=== PATIENT | female | born 1995 | race Hispanic/Latino ===

== ENCOUNTER 2021-02-06 09:31 | Inpatient (IN) | payer BC ==
[~2021-02-06] VITALS: Ht 165.1 cm; Wt 98.4 kg
[2021-02-06] MEDS ORDERED: LIDOCAINE HCL 2% VISCOUS 15 ML UDCUP ONE (10:06)
[2021-02-06] MEDS ORDERED: MAG HYDROX/AL HYDROX/SIMETH ES 30 ML SUSP UDCUP ONE (10:07)
[2021-02-06] MEDS ORDERED: FAMOTIDINE/PF 20 MG/2 ML VIAL IV ONE (10:08)
[2021-02-06 10:22] LABS: BASOPHILS % (AUTO) 0.4 % (0.0-5.0); EOSINOPHILS % (AUTO) 0.1 % (0.0-8.0); HEMATOCRIT 40.6 % (36-48); LYMPHOCYTES % (AUTO) 5.8 % (21.0-51.0); MEAN CORPUSCULAR HEMOGLOBIN 28.7 pg (27.0-33.0); MEAN CORPUSCULAR HGB CONC 32.8 g/dL (32.0-36.0); MEAN CORPUSCULAR VOLUME 87.5 fL (79-99); MONOCYTES % (AUTO) 8.5 % (3.0-13.0); NEUTROPHILS % (AUTO) 84.8 % (40.0-77.0); PLATELET COUNT (AUTO) 169 K/uL (130-400); RED BLOOD CELL COUNT(AUTO) 4.64 MIL/uL (4.00-5.50); RED CELL DISTRIBUTION WIDTH 14.6 % (11.0-15.5); WHITE BLOOD COUNT (AUTO) 7.7 K/uL (4.8-10.8)
[2021-02-06 10:32] LABS: CREATININE 0.8 mg/dL (0.5-1.5); POTASSIUM 3.9 mmol/L (3.5-5.1)
[2021-02-06 10:41] LABS: ALBUMIN 3.9 g/dL (3.5-5.0); BILIRUBIN,TOTAL 1.4 mg/dL (0.2-1.0); TOTAL PROTEIN, SERUM 8.4 g/dL (6.0-8.3)
[2021-02-06] MEDS ORDERED: HYDROMORPHONE HCL 0.5 MG/0.5 ML ML IVP PRN ×2 (16:15)
[2021-02-06] MEDS ORDERED: ONDANSETRON HCL 4 MG/2 ML VIAL IV PRN (16:15)
[2021-02-06 17:09] LABS: APPEARANCE,URINE Clear (CLEAR); BILIRUBIN,URINE Small (NEGATIVE); COLOR,URINE Dark Yellow (YELLOW); GLUCOSE, URINE (UA) Negative (NEGATIVE); KETONES,URINE Negative (NEGATIVE); LEUKOCYTE ESTERASE ,URINE Trace (NEGATIVE); NITRATE,URINE Negative (NEGATIVE); OCCULT BLOOD,URINE Negative (NEGATIVE); PH,URINE 7.5 (5.0-8.0); PROTEIN,URINE Negative (NEGATIVE)
[2021-02-06 17:10] LABS: ALANINE AMINOTRANSFERASE 566 U/L (12-78); ALBUMIN 4.1 g/dL (3.5-5.0); BILIRUBIN,DIRECT 0.7 mg/dL (0.0-0.3); BILIRUBIN,TOTAL 1.3 mg/dL (0.2-1.0); HCG,QUANTITATIVE 0 mIU/mL (0-5); THYROID STIMULATING HORMONE 88.01 uIU/mL (0.36-3.74); TOTAL PROTEIN, SERUM 8.5 g/dL (6.0-8.3)
[2021-02-06 17:15] LABS: ASPARTATE AMINOTRANSFERASE 896 U/L (10-37)
[2021-02-06 17:22] LABS: CRP QUANTITATIVE < 2.00 mg/L (0.00-9.0)
[2021-02-06 17:25] LABS: BACTERIA,URINE Few /HPF (None Seen); MUCUS,URINE Moderate LPF (None Seen); SQUAMOUS EPITHELIAL CELL,UR Few /HPF (0-2)
[2021-02-06] MEDS ORDERED: SUCRALFATE 1 GM TABLET ONE (21:50)
[2021-02-07] MEDS: SUCRALFATE 1 GM TABLET PO SCH ×2 (02:30→08:30)
[2021-02-07] MEDS ORDERED: SUCRALFATE 1 GM TABLET ONE ×3 (03:47→20:24)
[2021-02-07 05:42] LABS: EOSINOPHILS % (AUTO) 0.8 % (0.0-8.0); HEMATOCRIT 38.1 % (36-48); LYMPHOCYTES % (AUTO) 9.3 % (21.0-51.0); MEAN CORPUSCULAR HEMOGLOBIN 28.4 pg (27.0-33.0); MEAN CORPUSCULAR HGB CONC 32.3 g/dL (32.0-36.0); MONOCYTES % (AUTO) 12.4 % (3.0-13.0); NEUTROPHILS % (AUTO) 76.2 % (40.0-77.0); PLATELET COUNT (AUTO) 140 K/uL (130-400); RED BLOOD CELL COUNT(AUTO) 4.33 MIL/uL (4.00-5.50); RED CELL DISTRIBUTION WIDTH 14.6 % (11.0-15.5); WHITE BLOOD COUNT (AUTO) 5.9 K/uL (4.8-10.8)
[2021-02-07 06:07] LABS: ALBUMIN 3.5 g/dL (3.5-5.0); BILIRUBIN,TOTAL 4.7 mg/dL (0.2-1.0); CREATININE 0.7 mg/dL (0.5-1.5); TOTAL PROTEIN, SERUM 7.5 g/dL (6.0-8.3)
[2021-02-07] MEDS ORDERED: FAMOTIDINE/PF 20 MG/2 ML VIAL IV ONE ×2 (08:26→20:25)
[2021-02-07] MEDS ORDERED: LEVOTHYROXINE 150 MCG TABLET ONE (08:26)
[2021-02-07] MEDS ORDERED: PANTOPRAZOLE 40 MG/VIAL ONE ×2 (08:26→20:25)
[2021-02-07 22:20] VITALS: BP 115/72
[2021-02-07] MEDS ORDERED: LEVO75CA5 PO (23:10)
[2021-02-07] MEDS ORDERED: VITAD50000 PO (23:10)
[2021-02-07 23:37] VITALS: BP 120/74
[2021-02-07] MEDS ORDERED: FAMO20TA8 PO (23:51)
[2021-02-08] VITALS (30 sets, daily range): BP systolic 113–160; BP diastolic 62–95
[2021-02-08 04:18] LABS: BASOPHILS % (AUTO) 1.2 % (0.0-5.0); EOSINOPHILS % (AUTO) 1.8 % (0.0-8.0); HEMATOCRIT 36.8 % (36-48); LYMPHOCYTES % (AUTO) 17.3 % (21.0-51.0); MEAN CORPUSCULAR HEMOGLOBIN 28.5 pg (27.0-33.0); MEAN CORPUSCULAR HGB CONC 32.3 g/dL (32.0-36.0); MEAN CORPUSCULAR VOLUME 88.2 fL (79-99); MONOCYTES % (AUTO) 11.1 % (3.0-13.0); NEUTROPHILS % (AUTO) 68.3 % (40.0-77.0); PLATELET COUNT (AUTO) 129 K/uL (130-400); RED BLOOD CELL COUNT(AUTO) 4.17 MIL/uL (4.00-5.50); RED CELL DISTRIBUTION WIDTH 14.7 % (11.0-15.5); WHITE BLOOD COUNT (AUTO) 6.7 K/uL (4.8-10.8)
[2021-02-08 04:45] LABS: ALBUMIN 3.4 g/dL (3.5-5.0); BILIRUBIN,TOTAL 1.7 mg/dL (0.2-1.0); CREATININE 0.9 mg/dL (0.5-1.5); POTASSIUM 3.7 mmol/L (3.5-5.1); TOTAL PROTEIN, SERUM 7.2 g/dL (6.0-8.3)
[2021-02-08] MEDS: LEVOTHYROXINE 75 MCG TABLET PO SCH (06:30)
[2021-02-08] MEDS: SODIUM CHLORIDE 0.9% 1000ML 1,000 ML IV SCH (06:49)
[2021-02-08] MEDS: FAMOTIDINE/PF 20 MG/2 ML VIAL IV SCH ×2 (09:19→21:03)
[2021-02-08] MEDS ORDERED: IOHEXOL-350 50ML VIAL IV ONE (10:19)
[2021-02-08] MEDS ORDERED: INDOMETHACIN 50 MG SUPP.RECT RC SCH (12:15)
[2021-02-08] MEDS ORDERED: SUCCINYLCHOLINE 200MG/10ML SYR ONE (14:18)
[2021-02-08] MEDS ORDERED: PROPOFOL 10 MG/ML 20ML VIAL IV ONE ×2 (14:18→14:40)
[2021-02-08] MEDS ORDERED: FENTANYL CITRATE PF 50 MCG/1 ML 2ML VIAL ONE (14:18)
[2021-02-08] MEDS ORDERED: LIDOCAINE HCL 1% 20 ML VIAL ONE (14:18)
[2021-02-08] MEDS ORDERED: MIDAZOLAM HCL 1 MG/ML 2ML VIAL ONE (14:19)
[2021-02-08] MEDS: SUCRALFATE 1 GM TABLET PO SCH (21:02)
[2021-02-08] MEDS: PANTOPRAZOLE 40 MG/VIAL IVP SCH ×2 (21:02→21:30)
[2021-02-08 23:08] LABS: CARBON DIOXIDE 27 mmol/L (21-32); CHLORIDE 105 mmol/L (101-111); CREATININE 0.8 mg/dL (0.5-1.5); GLOMERULAR FILTR. RATE CALC 92 mL/min (>60); GLUCOSE,RANDOM 83 mg/dL (70-105); POTASSIUM 3.4 mmol/L (3.5-5.1); SODIUM SERUM 142 mmol/L (136-145); UREA NITROGEN, BLOOD 10 mg/dL (7-18)
[2021-02-08 23:18] LABS: ALANINE AMINOTRANSFERASE 354 U/L (12-78); ALBUMIN 3.4 g/dL (3.5-5.0); ASPARTATE AMINOTRANSFERASE 118 U/L (10-37); BILIRUBIN,TOTAL 1.2 mg/dL (0.2-1.0); CREATINE KINASE, TOTAL 96 U/L (21-232); MYOGLOBIN 35 ng/mL (10-92); TOTAL PROTEIN, SERUM 7.3 g/dL (6.0-8.3); TROPONIN I < 0.04 ng/mL (0.00-0.06)
[2021-02-08] MEDS ORDERED: POTASSIUM CHLORIDE 20MEQ/100ML 100 ML IV PRN (23:45)
[2021-02-09] MEDS: DEXTROSE 5 % AND 0.9 % NACL 1,000 ML IV SCH ×2 (00:57→12:11)
[2021-02-09] MEDS ORDERED: POTASSIUM CHLORIDE 20MEQ/100ML 100 ML IV ONE (01:32)
[2021-02-09] MEDS: LIDOCAINE HCL-MPF 1% 2ML VIAL IV PRN (02:01)
[2021-02-09 04:17] VITALS: BP 110/60
[2021-02-09 04:35] LABS: BASOPHILS % (AUTO) 0.7 % (0.0-5.0); EOSINOPHILS % (AUTO) 0.4 % (0.0-8.0); HEMATOCRIT 36.8 % (36-48); LYMPHOCYTES % (AUTO) 13.9 % (21.0-51.0); MEAN CORPUSCULAR HEMOGLOBIN 28.1 pg (27.0-33.0); MEAN CORPUSCULAR HGB CONC 32.1 g/dL (32.0-36.0); MEAN CORPUSCULAR VOLUME 87.6 fL (79-99); MONOCYTES % (AUTO) 8.5 % (3.0-13.0); NEUTROPHILS % (AUTO) 76.2 % (40.0-77.0); PLATELET COUNT (AUTO) 118 K/uL (130-400); RED CELL DISTRIBUTION WIDTH 14.6 % (11.0-15.5); WHITE BLOOD COUNT (AUTO) 8.9 K/uL (4.8-10.8)
[2021-02-09 04:45] LABS: INR 1.06 (0.85-1.15); PROTHROMBIN TIME 11.5 SEC (9.6-11.6)
[2021-02-09 04:59] LABS: ALANINE AMINOTRANSFERASE 323 U/L (12-78); ALBUMIN 3.2 g/dL (3.5-5.0); ASPARTATE AMINOTRANSFERASE 95 U/L (10-37); CARBON DIOXIDE 26 mmol/L (21-32); CHLORIDE 105 mmol/L (101-111); CREATINE KINASE, TOTAL 98 U/L (21-232); CREATININE 0.8 mg/dL (0.5-1.5); GLOMERULAR FILTR. RATE CALC 92 mL/min (>60); GLUCOSE,RANDOM 91 mg/dL (70-105); MYOGLOBIN 25 ng/mL (10-92); POTASSIUM 3.5 mmol/L (3.5-5.1); SODIUM SERUM 140 mmol/L (136-145); TOTAL PROTEIN, SERUM 7.1 g/dL (6.0-8.3); TROPONIN I < 0.04 ng/mL (0.00-0.06); UREA NITROGEN, BLOOD 9 mg/dL (7-18)
[2021-02-09] MEDS: LEVOTHYROXINE 75 MCG TABLET PO SCH (05:31)
[2021-02-09] MEDS: SUCRALFATE 1 GM TABLET PO SCH ×3 (07:34→20:30)
[2021-02-09 07:56] VITALS: BP 110/71
[2021-02-09] MEDS: FAMOTIDINE/PF 20 MG/2 ML VIAL IV SCH ×2 (09:00→21:00)
[2021-02-09] MEDS: PANTOPRAZOLE 40 MG/VIAL IVP SCH ×2 (09:00→21:00)
[2021-02-09] MEDS ORDERED: BUPIVACAINE/PF 0.5% 30ML VIAL ONE (10:00)
[2021-02-09] MEDS ORDERED: ALPRAZOLAM 0.25 MG TABLET PO PRN (11:00)
[2021-02-09 11:45] VITALS: BP 117/75
[2021-02-09 16:47] VITALS: BP 124/70
[2021-02-09 20:00] VITALS: BP 118/73
[2021-02-09 23:47] VITALS: BP 118/78
[2021-02-10] VITALS (25 sets, daily range): BP systolic 113–149; BP diastolic 60–89
[2021-02-10] MEDS: DEXTROSE 5 % AND 0.9 % NACL 1,000 ML IV SCH ×3 (00:18→17:35)
[2021-02-10] MEDS: SUCRALFATE 1 GM TABLET PO SCH ×4 (02:30→20:02)
[2021-02-10] MEDS: LEVOTHYROXINE 75 MCG TABLET PO SCH (02:53)
[2021-02-10 04:40] LABS: HEMATOCRIT 36.6 % (36-48); MEAN CORPUSCULAR HEMOGLOBIN 28.5 pg (27.0-33.0); MEAN CORPUSCULAR HGB CONC 32.5 g/dL (32.0-36.0); MEAN CORPUSCULAR VOLUME 87.8 fL (79-99); RED BLOOD CELL COUNT(AUTO) 4.17 MIL/uL (4.00-5.50); RED CELL DISTRIBUTION WIDTH 14.6 % (11.0-15.5); WHITE BLOOD COUNT (AUTO) 6.8 K/uL (4.8-10.8)
[2021-02-10 05:09] LABS: ALBUMIN 3.3 g/dL (3.5-5.0); CREATININE 0.8 mg/dL (0.5-1.5); POTASSIUM 3.2 mmol/L (3.5-5.1); TOTAL PROTEIN, SERUM 7.2 g/dL (6.0-8.3)
[2021-02-10] MEDS: LIDOCAINE HCL-MPF 1% 2ML VIAL IV PRN (06:22)
[2021-02-10] MEDS: PANTOPRAZOLE 40 MG/VIAL IVP SCH ×2 (09:00→20:02)
[2021-02-10] MEDS: FAMOTIDINE/PF 20 MG/2 ML VIAL IV SCH ×2 (09:00→20:02)
[2021-02-10] MEDS ORDERED: BUPIVACAINE/PF 0.5% 30ML VIAL ONE (15:07)
[2021-02-10] MEDS ORDERED: CEFAZOLIN SODIUM 1 GM VIAL ONE (15:27)
[2021-02-10] MEDS ORDERED: MIDAZOLAM HCL 1 MG/ML 2ML VIAL ONE ×2 (15:37→15:38)
[2021-02-10] MEDS ORDERED: FENTANYL CITRATE PF 50 MCG/1 ML 2ML VIAL ONE (15:40)
[2021-02-10] MEDS ORDERED: SUCCINYLCHOLINE CHLORIDE 20 MG/ML 10 ML VIAL ONE (15:40)
[2021-02-10] MEDS ORDERED: LIDOCAINE HCL-MPF 1% 5ML AMP IJ ONE (15:40)
[2021-02-10] MEDS ORDERED: PROPOFOL 10 MG/ML 20ML VIAL IV ONE (15:40)
[2021-02-10] MEDS ORDERED: ROCURONIUM 10MG/1ML SYR 10 MG/ML ML ONE (15:40)
[2021-02-10] MEDS ORDERED: NEOSTIGMINE 5MG/5ML SYR IV ONE (16:22)
[2021-02-10] MEDS ORDERED: GLYCOPYRROLATE 1 MG/5 ML SYRINGE ONE (16:22)
[2021-02-10] MEDS: SODIUM CHLORIDE 0.9% 1000ML 1,000 ML IV SCH (16:35)
[2021-02-10] MEDS ORDERED: MEPERIDINE-PF 25 MG/ML SYG ONE (16:37)
[2021-02-10] MEDS: CEFAZOLIN SODIUM 1 GM VIAL IVP SCH (22:03)
[2021-02-10] MEDS: ACETAMINOPHEN-CODEINE 300/30MG TAB PO PRN (23:49)
[2021-02-11] MEDS: SUCRALFATE 1 GM TABLET PO SCH ×4 (01:15→20:30)
[2021-02-11] MEDS: DEXTROSE 5 % AND 0.9 % NACL 1,000 ML IV SCH ×3 (02:19→21:30)
[2021-02-11 04:00] VITALS: BP 142/52
[2021-02-11] MEDS: CEFAZOLIN SODIUM 1 GM VIAL IVP SCH ×2 (05:44→13:05)
[2021-02-11] MEDS: LEVOTHYROXINE 75 MCG TABLET PO SCH (05:45)
[2021-02-11] MEDS: ACETAMINOPHEN-CODEINE 300/30MG TAB PO PRN ×2 (05:45→13:05)
[2021-02-11 06:48] LABS: BASOPHILS % (AUTO) 0.2 % (0.0-5.0); LYMPHOCYTES % (AUTO) 2.8 % (21.0-51.0); MEAN CORPUSCULAR HEMOGLOBIN 28.3 pg (27.0-33.0); MEAN CORPUSCULAR HGB CONC 32.2 g/dL (32.0-36.0); MEAN CORPUSCULAR VOLUME 87.9 fL (79-99); MONOCYTES % (AUTO) 9.6 % (3.0-13.0); PLATELET COUNT (AUTO) 109 K/uL (130-400); RED BLOOD CELL COUNT(AUTO) 4.21 MIL/uL (4.00-5.50); RED CELL DISTRIBUTION WIDTH 14.6 % (11.0-15.5)
[2021-02-11 06:52] LABS: CREATININE 0.8 mg/dL (0.5-1.5); POTASSIUM 3.4 mmol/L (3.5-5.1)
[2021-02-11] MEDS: FAMOTIDINE/PF 20 MG/2 ML VIAL IV SCH ×2 (07:45→20:32)
[2021-02-11] MEDS: PANTOPRAZOLE 40 MG/VIAL IVP SCH ×2 (07:45→20:32)
[2021-02-11 08:00] VITALS: BP 128/75
[2021-02-11 08:31] LABS: ALBUMIN 3.7 g/dL (3.5-5.0); BILIRUBIN,DIRECT 0.3 mg/dL (0.0-0.3); BILIRUBIN,TOTAL 0.9 mg/dL (0.2-1.0); TOTAL PROTEIN, SERUM 7.8 g/dL (6.0-8.3)
[2021-02-11 12:00] VITALS: BP 116/76
[2021-02-11] MEDS: AMOXICILLIN/POTASSIUM CLAV 875-125 TABLET PO SCH (15:54)
[2021-02-11 16:00] VITALS: BP 126/77
[2021-02-11] MEDS ORDERED: KETOROLAC TROMETHAMINE 15MG/ML ONE (17:09)
[2021-02-11 20:45] VITALS: BP 125/75
[2021-02-11] MEDS: KETOROLAC TROMETHAMINE 15MG/ML IV PRN (22:59)
[2021-02-11 23:50] VITALS: BP 109/70
[2021-02-12] MEDS: SUCRALFATE 1 GM TABLET PO SCH ×3 (01:29→14:30)
[2021-02-12] MEDS: AMOXICILLIN/POTASSIUM CLAV 875-125 TABLET PO SCH ×2 (02:11→15:54)
[2021-02-12 04:04] VITALS: BP 129/72
[2021-02-12 04:24] LABS: BASOPHILS % (AUTO) 0.3 % (0.0-5.0); EOSINOPHILS % (AUTO) 0.2 % (0.0-8.0); LYMPHOCYTES % (AUTO) 10.5 % (21.0-51.0); MEAN CORPUSCULAR HEMOGLOBIN 28.8 pg (27.0-33.0); MEAN CORPUSCULAR HGB CONC 32.8 g/dL (32.0-36.0); MEAN CORPUSCULAR VOLUME 87.9 fL (79-99); MONOCYTES % (AUTO) 13.3 % (3.0-13.0); NEUTROPHILS % (AUTO) 75.2 % (40.0-77.0); PLATELET COUNT (AUTO) 98 K/uL (130-400); RED BLOOD CELL COUNT(AUTO) 3.64 MIL/uL (4.00-5.50); RED CELL DISTRIBUTION WIDTH 14.6 % (11.0-15.5); WHITE BLOOD COUNT (AUTO) 12.3 K/uL (4.8-10.8)
[2021-02-12 04:49] LABS: ALBUMIN 3.3 g/dL (3.5-5.0); CREATININE 0.8 mg/dL (0.5-1.5); TOTAL PROTEIN, SERUM 7.3 g/dL (6.0-8.3)
[2021-02-12] MEDS: LEVOTHYROXINE 75 MCG TABLET PO SCH (05:07)
[2021-02-12] MEDS ORDERED: LIDOCAINE HCL-MPF 1% 2ML VIAL IV PRN (05:15)
[2021-02-12] MEDS ORDERED: POTASSIUM CHLORIDE 10% ELIXIR 20 MEQ/15 ML UDCUP PO PRN (05:15)
[2021-02-12] MEDS ORDERED: POTASSIUM CHLORIDE 20MEQ/100ML 100 ML IV PRN (05:15)
[2021-02-12] MEDS ORDERED: POTASSIUM CHLORIDE 20 MEQ ERTAB PO PRN (05:15)
[2021-02-12 08:00] VITALS: BP 123/73
[2021-02-12] MEDS: DEXTROSE 5 % AND 0.9 % NACL 1,000 ML IV SCH (08:15)
[2021-02-12] MEDS ORDERED: ACET-66 PO (08:35)
[2021-02-12] MEDS ORDERED: AMOX-429 PO (08:35)
[2021-02-12] MEDS ORDERED: KETO10TA2 PO (08:35)
[2021-02-12] MEDS: PANTOPRAZOLE 40 MG/VIAL IVP SCH (09:00)
[2021-02-12] MEDS: FAMOTIDINE/PF 20 MG/2 ML VIAL IV SCH (09:00)
[2021-02-12] MEDS ORDERED: POTASSIUM CHLORIDE 20 MEQ ERTAB PO SCH (09:00)
[2021-02-12 12:00] VITALS: BP 111/66
[2021-02-12] MEDS: KETOROLAC TROMETHAMINE 15MG/ML IV PRN (13:53)
[2021-02-12 16:00] VITALS: BP 117/66
== END 2021-02-12 17:28 | disposition home or self-care (01) | DRG 419 ==
LOC: EDH 09:31 → EDHIP 16:11 → WSH 02-07 22:20 → 4BH 02-09 00:57
PROVIDERS: ADMIT Internal Medicine; ATTEND Internal Medicine
PROC: BF111ZZ Fluoroscopy of Biliary and Pancreatic Ducts using Low Osmolar Contrast (ICD-10-PCS; 2021-02-08)
PROC: 0F798ZZ Dilation of Common Bile Duct, Via Natural or Artificial Opening Endoscopic (ICD-10-PCS; 2021-02-08)
PROC: 0FT44ZZ Resection of Gallbladder, Percutaneous Endoscopic Approach (ICD-10-PCS; principal; 2021-02-10 09:30)
DX: K80.00 Calculus of gallbladder with acute cholecystitis without obstruction (principal); D69.6 Thrombocytopenia, unspecified; Z68.36 Body mass index [BMI] 36.0-36.9, adult; E89.0 Postprocedural hypothyroidism; K82.8 Other specified diseases of gallbladder; Z85.850 Personal history of malignant neoplasm of thyroid; R74.01 Elevation of levels of liver transaminase levels; R74.8 Abnormal levels of other serum enzymes; R79.89 Other specified abnormal findings of blood chemistry; R94.5 Abnormal results of liver function studies; E66.9 Obesity, unspecified; E87.6 Hypokalemia
CPT/HCPCS: 36415; 43262; 43264; 74176; 74330; 76700; 78226; 80048; 80053; 80076; 81001; 82150; 82550; 82948; 82977; 83690; 83735; 83874; 84100; 84132; 84145; 84443; 84484; 84702; 85025; 85027; 85378; 85610; 86140; 93005; 94760; A4606; A9537; C1769; C1773; C9113; G0378; J0330; J0690; J1170; J1885; J2175; J2250; J2405; J2704; J2710; J3010; J3480; J3490; J7030; J7042; J7120; Q9967